=== PATIENT | female | born 1945 | race Two or more races ===

== ENCOUNTER 2017-05-20 13:48 | Outpatient (CLI) | payer OTHER ==
[~2017-05-20 13:48] MED LIST: [UNRECOGNIZED DRUG - OTHER]
== END 2017-05-20 14:54 | disposition home or self-care (01) ==
LOC: MAMO-SONO 13:48
DX: Z12.31 Encounter for screening mammogram for malignant neoplasm of breast (principal); Z87.898 Personal history of other specified conditions; C50.911 Malignant neoplasm of unspecified site of right female breast; C50.912 Malignant neoplasm of unspecified site of left female breast

== ENCOUNTER 2017-05-23 12:25 | Outpatient (CLI) | payer OTHER | END 2017-05-23 15:39 | disposition home or self-care (01) | LOC: NUCLEAR 12:25 | DX: M81.0 Age-related osteoporosis without current pathological fracture (principal) ==

== ENCOUNTER 2017-11-26 09:51 | Outpatient (CLI) | payer OTHER | END 2017-11-26 10:01 | disposition home or self-care (01) | LOC: NUCLEAR 09:51 | DX: I11.9 Hypertensive heart disease without heart failure (principal) ==

== ENCOUNTER 2018-03-06 09:24 | Outpatient (CLI) | payer OTHER | END 2018-03-06 11:15 | disposition home or self-care (01) | LOC: RAD 09:24 | DX: M20.12 Hallux valgus (acquired), left foot (principal) ==

== ENCOUNTER 2018-08-13 12:38 | Outpatient (CLI) | payer OTHER | END 2018-08-13 12:43 | disposition home or self-care (01) | LOC: MAMO-SONO 12:38 | DX: Z12.31 Encounter for screening mammogram for malignant neoplasm of breast (principal); Z87.898 Personal history of other specified conditions; C50.911 Malignant neoplasm of unspecified site of right female breast; C50.912 Malignant neoplasm of unspecified site of left female breast; N63.10 Unspecified lump in the right breast, unspecified quadrant; N63.20 Unspecified lump in the left breast, unspecified quadrant; I11.9 Hypertensive heart disease without heart failure; R06.02 Shortness of breath ==

== ENCOUNTER 2018-09-11 11:13 | Outpatient (CLI) | payer OTHER | END 2018-09-11 11:17 | disposition home or self-care (01) | LOC: SONOGRAMA 11:13 | DX: N60.11 Diffuse cystic mastopathy of right breast (principal); N60.12 Diffuse cystic mastopathy of left breast; N63.21 Unspecified lump in the left breast, upper outer quadrant ==

== ENCOUNTER 2018-09-30 08:51 | Outpatient (CLI) | payer OTHER | END 2018-09-30 08:55 | disposition home or self-care (01) | LOC: RAD 08:51 | DX: M16.11 Unilateral primary osteoarthritis, right hip (principal); M17.11 Unilateral primary osteoarthritis, right knee ==

== ENCOUNTER 2018-11-13 06:32 | Outpatient (CLI) | payer OTHER | END 2018-11-13 06:49 | disposition home or self-care (01) | LOC: LAB 06:32 | DX: D64.89 Other specified anemias (principal); E88.89 Other specified metabolic disorders; D68.8 Other specified coagulation defects; N39.0 Urinary tract infection, site not specified; Z22.322 Carrier or suspected carrier of Methicillin resistant Staphylococcus aureus; Z76.89 Persons encountering health services in other specified circumstances; I49.8 Other specified cardiac arrhythmias ==

== ENCOUNTER 2018-11-19 16:56 | Outpatient (CLI) | payer OTHER | END 2018-11-19 17:05 | disposition home or self-care (01) | LOC: RAD 16:56 | DX: M16.11 Unilateral primary osteoarthritis, right hip (principal); M87.050 Idiopathic aseptic necrosis of pelvis ==

== ENCOUNTER 2018-11-25 14:48 | Inpatient (IN) | payer OTHER ==
[~2018-11-25] VITALS: Ht 152.4 cm; Wt 59.9 kg
[2018-11-25] MEDS ORDERED: CALCI-CHEW500 MG PO (15:52)
[2018-11-25] MEDS ORDERED: ASPIRIN81 M1 PO (15:52)
[2018-11-25] MEDS ORDERED: AMOLODIPINE PO (15:53)
[2018-11-25] MEDS ORDERED: DICLOFENAC POTA50 MG PO (15:53)
[2018-11-25] MEDS ORDERED: GLUCOSA (15:54)
[2018-11-25] MEDS ORDERED: TYLENOL ARTHRI650 MG PO (15:54)
[2018-11-25] MEDS ORDERED: LIPITO PO (15:55)
[2018-11-25] MEDS ORDERED: TYLENOL 120MG120 MG PO (15:55)
[2018-11-25] MEDS ORDERED: NEURIN SL (15:56)
[2018-11-25] MEDS ORDERED: IBUPROFEN800 MG (15:56)
[2018-12-01] MEDS ORDERED: ATORVASTATIN CA10 MG PO (09:42)
[2018-12-01] MEDS ORDERED: AMLODIPINE BESYL5 MG PO (09:42)
[2018-12-01] MEDS ORDERED: VITAMIN D35000 UNIT PO (09:43)
[2018-12-01] MEDS ORDERED: ABANEU-SL TABL1 EACH SL (09:44)
== END 2018-12-03 17:45 | DRG 470 ==
LOC: O/R 12-01 07:39 → SURH 12-01 07:39
PROVIDERS: ADMIT Orthopaedic Surgery
PROC: 0SR902Z Replacement of Right Hip Joint with Metal on Polyethylene Synthetic Substitute, Open Approach (ICD-10-PCS; principal; 2018-12-01 09:45)
DX: M16.11 Unilateral primary osteoarthritis, right hip (principal); D62 Acute posthemorrhagic anemia; Z96.641 Presence of right artificial hip joint

== ENCOUNTER 2019-02-12 07:42 | Outpatient (CLI) | payer OTHER ==
[~2019-02-12 07:42] MED LIST changes: +ABANEU-SL TABL1 EACH SL; +AMLODIPINE BESYL5 MG PO; +AMOLODIPINE PO; +ASPIRIN81 M1 PO; +ATORVASTATIN CA10 MG PO; +CALCI-CHEW500 MG PO; +DICLOFENAC POTA50 MG PO; +GLUCOSA; +IBUPROFEN800 MG; +LIPITO PO; +NEURIN SL; +TYLENOL 120MG120 MG PO; +TYLENOL ARTHRI650 MG PO; +VITAMIN D35000 UNIT PO
== END 2019-02-12 08:18 | disposition home or self-care (01) ==
LOC: SONOGRAMA 07:42
DX: N60.11 Diffuse cystic mastopathy of right breast (principal); N60.12 Diffuse cystic mastopathy of left breast

== ENCOUNTER 2019-05-04 09:45 | Outpatient (CLI) | payer OTHER | END 2019-05-04 10:20 | disposition home or self-care (01) | LOC: NUCLEAR 09:45 | DX: M81.6 Localized osteoporosis [Lequesne] (principal) ==

== ENCOUNTER 2020-02-21 10:29 | Outpatient (CLI) | payer OTHER | END 2020-02-21 10:38 | disposition home or self-care (01) | LOC: MAMO-SONO 10:29 | PROVIDERS: ATTEND Surgery | DX: Z12.31 Encounter for screening mammogram for malignant neoplasm of breast (principal); N60.11 Diffuse cystic mastopathy of right breast; N60.12 Diffuse cystic mastopathy of left breast ==

== ENCOUNTER 2021-01-08 12:15 | Outpatient (CLI) | payer OTHER | END 2021-01-08 12:20 | disposition home or self-care (01) | LOC: PPH VACUNA 12:15 | PROVIDERS: ATTEND Emergency Medicine Pediatric Emergency Medicine | DX: Z23 Encounter for immunization (principal) ==

== ENCOUNTER 2021-02-28 10:21 | Outpatient (CLI) | payer OTHER | END 2021-02-28 10:36 | disposition home or self-care (01) | LOC: MAMO-SONO 10:21 | PROVIDERS: ATTEND Surgery | DX: N60.11 Diffuse cystic mastopathy of right breast (principal); N60.12 Diffuse cystic mastopathy of left breast; R92.1 Mammographic calcification found on diagnostic imaging of breast; Z12.31 Encounter for screening mammogram for malignant neoplasm of breast ==

== ENCOUNTER → 2022-01-15 06:30 | Outpatient (CLI) | payer OTHER | END | disposition home or self-care (01) | LOC: LAB 06:30 | PROVIDERS: ATTEND Internal Medicine Hematology & Oncology | DX: D50.8 Other iron deficiency anemias (principal); R79.9 Abnormal finding of blood chemistry, unspecified; I10 Essential (primary) hypertension; R74.02 Elevation of levels of lactic acid dehydrogenase [LDH]; K76.89 Other specified diseases of liver; D51.1 Vitamin B12 deficiency anemia due to selective vitamin B12 malabsorption with proteinuria; D51.0 Vitamin B12 deficiency anemia due to intrinsic factor deficiency; C50.919 Malignant neoplasm of unspecified site of unspecified female breast; R97.8 Other abnormal tumor markers; R97.1 Elevated cancer antigen 125 [CA 125]; C56.9 Malignant neoplasm of unspecified ovary; E06.3 Autoimmune thyroiditis; E03.8 Other specified hypothyroidism; E78.2 Mixed hyperlipidemia; D53.0 Protein deficiency anemia ==

== ENCOUNTER 2022-01-31 06:12 | Outpatient (CLI) | payer OTHER | END 2022-01-31 06:13 | disposition home or self-care (01) | LOC: LAB 06:12 | PROVIDERS: ATTEND Internal Medicine Geriatric Medicine | DX: D50.9 Iron deficiency anemia, unspecified (principal); E03.9 Hypothyroidism, unspecified; E78.2 Mixed hyperlipidemia; I11.9 Hypertensive heart disease without heart failure; E56.8 Deficiency of other vitamins; N39.0 Urinary tract infection, site not specified; Z12.11 Encounter for screening for malignant neoplasm of colon; E55.9 Vitamin D deficiency, unspecified; N19 Unspecified kidney failure; E11.9 Type 2 diabetes mellitus without complications; R80.9 Proteinuria, unspecified; K92.1 Melena; C18.9 Malignant neoplasm of colon, unspecified ==

== ENCOUNTER 2022-03-04 09:52 | Outpatient (CLI) | payer OTHER | END 2022-03-04 10:03 | disposition home or self-care (01) | LOC: MAMO-SONO 09:52 | PROVIDERS: ATTEND Surgery | DX: N60.11 Diffuse cystic mastopathy of right breast (principal); N60.12 Diffuse cystic mastopathy of left breast ==

== ENCOUNTER → 2022-03-06 06:20 | Outpatient (CLI) | payer OTHER | END | disposition home or self-care (01) | LOC: LAB 06:20 | PROVIDERS: ATTEND Internal Medicine Hematology & Oncology | DX: D50.8 Other iron deficiency anemias (principal); R79.9 Abnormal finding of blood chemistry, unspecified; I10 Essential (primary) hypertension; R74.02 Elevation of levels of lactic acid dehydrogenase [LDH]; K76.89 Other specified diseases of liver; D51.3 Other dietary vitamin B12 deficiency anemia; D53.0 Protein deficiency anemia; D61.811 Other drug-induced pancytopenia; E78.2 Mixed hyperlipidemia ==

== ENCOUNTER 2022-05-16 06:45 | Outpatient (CLI) | payer OTHER | END 2022-05-16 14:10 | disposition home or self-care (01) | LOC: LAB 06:45 | PROVIDERS: ATTEND Internal Medicine Geriatric Medicine | DX: D50.9 Iron deficiency anemia, unspecified (principal); E03.9 Hypothyroidism, unspecified; E78.2 Mixed hyperlipidemia; I11.9 Hypertensive heart disease without heart failure; E56.8 Deficiency of other vitamins; N39.0 Urinary tract infection, site not specified; Z12.11 Encounter for screening for malignant neoplasm of colon; R19.5 Other fecal abnormalities; E55.9 Vitamin D deficiency, unspecified; N19 Unspecified kidney failure; E11.9 Type 2 diabetes mellitus without complications ==

== ENCOUNTER → 2022-06-11 06:13 | Outpatient (CLI) | payer OTHER | END | disposition home or self-care (01) | LOC: LAB 06:13 | PROVIDERS: ATTEND Internal Medicine Hematology & Oncology | DX: D50.8 Other iron deficiency anemias (principal); R79.9 Abnormal finding of blood chemistry, unspecified; I10 Essential (primary) hypertension; R74.02 Elevation of levels of lactic acid dehydrogenase [LDH]; K76.89 Other specified diseases of liver; D51.8 Other vitamin B12 deficiency anemias; D51.3 Other dietary vitamin B12 deficiency anemia; D53.0 Protein deficiency anemia; D61.811 Other drug-induced pancytopenia; E78.2 Mixed hyperlipidemia; D70.8 Other neutropenia ==

== ENCOUNTER 2022-08-14 06:49 | Outpatient (CLI) | payer OTHER | END 2022-08-14 06:58 | disposition home or self-care (01) | LOC: LAB 06:49 | PROVIDERS: ATTEND Internal Medicine Hematology & Oncology | DX: D50.9 Iron deficiency anemia, unspecified (principal); E03.9 Hypothyroidism, unspecified; E78.2 Mixed hyperlipidemia; I11.9 Hypertensive heart disease without heart failure; E56.8 Deficiency of other vitamins; N39.0 Urinary tract infection, site not specified; Z12.11 Encounter for screening for malignant neoplasm of colon; E55.9 Vitamin D deficiency, unspecified; N19 Unspecified kidney failure; E11.9 Type 2 diabetes mellitus without complications; K92.1 Melena ==

== ENCOUNTER 2022-09-30 06:09 | Outpatient (CLI) | payer OTHER | END 2022-09-30 06:11 | disposition home or self-care (01) | LOC: LAB 06:09 | PROVIDERS: ATTEND Internal Medicine Hematology & Oncology | DX: D50.8 Other iron deficiency anemias (principal); R79.9 Abnormal finding of blood chemistry, unspecified; I10 Essential (primary) hypertension; R74.02 Elevation of levels of lactic acid dehydrogenase [LDH]; K76.89 Other specified diseases of liver ==

== ENCOUNTER 2022-12-03 06:52 | Outpatient (CLI) | payer OTHER | END 2022-12-03 06:56 | disposition home or self-care (01) | LOC: LAB 06:52 | PROVIDERS: ATTEND Internal Medicine Geriatric Medicine | DX: D50.9 Iron deficiency anemia, unspecified (principal); E03.9 Hypothyroidism, unspecified; E78.2 Mixed hyperlipidemia; I11.9 Hypertensive heart disease without heart failure; E56.8 Deficiency of other vitamins; N39.0 Urinary tract infection, site not specified; Z12.11 Encounter for screening for malignant neoplasm of colon; R19.5 Other fecal abnormalities; E55.9 Vitamin D deficiency, unspecified; N19 Unspecified kidney failure; E11.9 Type 2 diabetes mellitus without complications ==

== ENCOUNTER → 2023-02-13 06:04 | Outpatient (CLI) | payer OTHER ==
[2023-02-13 07:09] LABS: URINE APPEARANCE Clear; URINE BILIRRUBIN Negative (NEGATIVE); URINE BLOOD Negative; URINE COLOR Yellow; URINE GLUCOSE Negative (NEGATIVE); URINE LEUKOCYTE Negative; URINE NITRATE Negative; URINE PROTEIN Negative (NEGATIVE); URINE UROBILINOGEN 0.2 E.U./dl
[2023-02-13 07:11] LABS: URINE BACTERIA 13.8 uL (0.0-1933); URINE EPITHELIAL CELLS 2.3 uL (0.0-38.8); URINE RBC 6.6 uL (0.0-20.8)
[2023-02-13 07:15] LABS: URINE WBC 0.7 uL (0.0-23.2)
[2023-02-13 07:20] LABS: HEMATOCRIT 37.5 % (36.0-45.00); HEMOGLOBIN 12.6 g/dL (12.0-15.00); MEAN CELL VOLUME 92.1 fL (80.00-100.00); MEAN CORPUSCULAR HEMOGLOBIN 30.9 pg (27.00-32.0); MEAN CORPUSCULAR HGB CONC 33.6 g/dl (32.0-36.0); PLATELET COUNT 252 K/uL (150-450); RED BLOOD COUNT 4.07 M/uL (4.00-6.00); RED CELL DISTRIBUTION WIDTH 13.8 % (11.5-14.5)
[2023-02-13 08:09] LABS: ALBUMIN 3.5 gm/dL (3.4-5.0); BILIRUBIN TOTAL 0.45 mg/dL (0.3-1.2); CALCIUM 9.1 mg/dL (8.5-10.1); CHOL HDL RATIO 1.8 (0-5.0); CREATININE SERUM 0.66 mg/dL (0.55-1.02); GFR 87.31; GLOBULINA 3.2 G/DL (2.4-3.5); POTASSIUM 4.6 mEq/L (3.5-5.1); TOTAL PROTEIN 6.7 gm/dL (6.4-8.2); TSH 1.16 uIU/mL (0.358-3.74)
== END | disposition home or self-care (01) ==
LOC: LAB 06:04
PROVIDERS: ATTEND Internal Medicine Geriatric Medicine
DX: E03.9 Hypothyroidism, unspecified (principal); E78.2 Mixed hyperlipidemia; I11.9 Hypertensive heart disease without heart failure; E56.8 Deficiency of other vitamins; N39.0 Urinary tract infection, site not specified; Z12.11 Encounter for screening for malignant neoplasm of colon; R19.5 Other fecal abnormalities; E55.9 Vitamin D deficiency, unspecified; N19 Unspecified kidney failure; E11.9 Type 2 diabetes mellitus without complications

== ENCOUNTER 2023-03-14 09:38 | Outpatient (CLI) | payer OTHER | END 2023-03-14 09:50 | disposition home or self-care (01) | LOC: MAMO-SONO 09:38 | PROVIDERS: ATTEND Surgery | DX: N60.11 Diffuse cystic mastopathy of right breast (principal); N60.12 Diffuse cystic mastopathy of left breast; Z12.31 Encounter for screening mammogram for malignant neoplasm of breast ==

== ENCOUNTER 2023-04-15 06:08 | Outpatient (CLI) | payer OTHER ==
[2023-04-15 08:23] LABS: HEMATOCRIT 37.2 % (36.0-45.00); HEMOGLOBIN 12.8 g/dL (12.0-15.00); MEAN CELL VOLUME 93.7 fL (80.00-100.00); MEAN CORPUSCULAR HEMOGLOBIN 32.3 pg (27.00-32.0); MEAN CORPUSCULAR HGB CONC 34.4 g/dl (32.0-36.0); PLATELET COUNT 263 K/uL (150-450); RED BLOOD COUNT 3.97 M/uL (4.00-6.00); RED CELL DISTRIBUTION WIDTH 13.9 % (11.5-14.5)
[2023-04-15 08:30] LABS: % SATURACION 20.3 % (15-50); ALBUMIN 3.6 gm/dL (3.4-5.0); BILIRUBIN TOTAL 0.41 mg/dL (0.3-1.2); CALCIUM 9.3 mg/dL (8.5-10.1); CREATININE SERUM 0.63 mg/dL (0.55-1.02); FERRITIN 15.9 NG/ML (8-252); GFR 92.12; GLOBULINA 3.3 G/DL (2.4-3.5); POTASSIUM 4.87 mEq/L (3.5-5.1); TOTAL PROTEIN 6.9 gm/dL (6.4-8.2)
[2023-04-15 11:40] LABS: FOLIC ACID > 20.00 ng/ml (4.78-20)
[2023-04-15 13:26] LABS: MANUAL PLATELET COUNT 430
[2023-04-15 13:29] LABS: PLATELET ESTIMATE NORMAL (NORMAL)
== END 2023-04-15 06:30 | disposition home or self-care (01) ==
LOC: LAB 06:08
PROVIDERS: ATTEND Internal Medicine Hematology & Oncology
DX: D72.818 Other decreased white blood cell count (principal); D51.3 Other dietary vitamin B12 deficiency anemia; D53.0 Protein deficiency anemia; D61.811 Other drug-induced pancytopenia; I10 Essential (primary) hypertension; E78.2 Mixed hyperlipidemia; D70.8 Other neutropenia

== ENCOUNTER → 2023-05-19 07:00 | Outpatient (CLI) | payer OTHER ==
[2023-05-19 07:39] LABS: HEMATOCRIT 37.1 % (36.0-45.00); HEMOGLOBIN 12.7 g/dL (12.0-15.00); MEAN CORPUSCULAR HEMOGLOBIN 31.5 pg (27.00-32.0); MEAN CORPUSCULAR HGB CONC 34.2 g/dl (32.0-36.0); PLATELET COUNT 250 K/uL (150-450); RED BLOOD COUNT 4.03 M/uL (4.00-6.00); RED CELL DISTRIBUTION WIDTH 13.5 % (11.5-14.5)
[2023-05-19 08:03] LABS: PH,URINE 7.5 (5.0-8.0); URINE APPEARANCE Clear; URINE BILIRRUBIN Negative (NEGATIVE); URINE BLOOD Negative; URINE COLOR Yellow; URINE GLUCOSE Negative (NEGATIVE); URINE LEUKOCYTE Small; URINE NITRATE Negative; URINE PROTEIN Negative (NEGATIVE); URINE UROBILINOGEN 0.2 E.U./dl
[2023-05-19 08:04] LABS: URINE BACTERIA 90.7 uL (0.0-1933); URINE EPITHELIAL CELLS 7.8 uL (0.0-38.8); URINE RBC 9.6 uL (0.0-20.8); URINE WBC 13.4 uL (0.0-23.2)
[2023-05-19 08:18] LABS: ALBUMIN 3.5 gm/dL (3.4-5.0); BILIRUBIN TOTAL 0.52 mg/dL (0.3-1.2); CALCIUM 9.4 mg/dL (8.5-10.1); CHOL HDL RATIO 2.2 (0-5.0); CREATININE SERUM 0.58 mg/dL (0.55-1.02); GFR 101.07; GLOBULINA 3.5 G/DL (2.4-3.5); POTASSIUM 4.48 mEq/L (3.5-5.1); TSH 1.14 uIU/mL (0.358-3.74)
== END | disposition home or self-care (01) ==
LOC: LAB 07:00
PROVIDERS: ATTEND Internal Medicine Geriatric Medicine
DX: D50.9 Iron deficiency anemia, unspecified (principal); E03.9 Hypothyroidism, unspecified; E78.2 Mixed hyperlipidemia; I11.9 Hypertensive heart disease without heart failure; E56.8 Deficiency of other vitamins; N39.0 Urinary tract infection, site not specified; Z12.11 Encounter for screening for malignant neoplasm of colon; R19.5 Other fecal abnormalities; E55.9 Vitamin D deficiency, unspecified; N19 Unspecified kidney failure; E11.9 Type 2 diabetes mellitus without complications

== ENCOUNTER 2023-05-22 13:02 | Outpatient (CLI) | payer OTHER | END 2023-05-22 13:06 | disposition home or self-care (01) | LOC: NUCLEAR 13:02 | PROVIDERS: ATTEND Internal Medicine Geriatric Medicine | DX: M81.0 Age-related osteoporosis without current pathological fracture (principal); M15.0 Primary generalized (osteo)arthritis ==

== ENCOUNTER 2023-10-09 06:08 | Outpatient (CLI) | payer OTHER ==
[2023-10-09 07:20] LABS: HEMATOCRIT 35.8 % (36.0-45.00); HEMOGLOBIN 12.3 g/dL (12.0-15.00); MEAN CELL VOLUME 90.8 fL (80.00-100.00); MEAN CORPUSCULAR HEMOGLOBIN 31.1 pg (27.00-32.0); MEAN CORPUSCULAR HGB CONC 34.2 g/dl (32.0-36.0); PLATELET COUNT 269 K/uL (150-450); RED BLOOD COUNT 3.95 M/uL (4.00-6.00); RED CELL DISTRIBUTION WIDTH 13.6 % (11.5-14.5)
[2023-10-09 08:00] LABS: ALBUMIN 3.4 gm/dL (3.4-5.0); BILIRUBIN TOTAL 0.54 mg/dL (0.3-1.2); CREATININE SERUM 0.63 mg/dL (0.55-1.02); FERRITIN 17.5 NG/ML (8-252); GFR 91.88; GLOBULINA 3.5 G/DL (2.4-3.5); POTASSIUM 4.02 mEq/L (3.5-5.1); TOTAL PROTEIN 6.9 gm/dL (6.4-8.2)
[2023-10-09 12:31] LABS: FOLIC ACID > 20.00 ng/ml (4.78-20)
[2023-10-10 09:10] LABS: CA 125 4.3 U/mL (0.0-38.1); CA 15-3 11.5 U/mL (0.0-25.0); CA 19-9 7 U/mL (0-35)
[2023-10-10 10:35] LABS: PLATELET ESTIMATE NORMAL (NORMAL)
[2023-10-10 13:06] LABS: hgb a 97.8 % (96.4-98.8); hgb a2 2.2 % (1.8-3.2); hgb f 0 % (0.0-2.0); hgb s 0 % (0.0)
[2023-10-14 07:50] LABS: rbc 4.05
[2023-10-15 09:57] LABS: g6pd quant 266 (127-427)
== END 2023-10-09 06:13 | disposition home or self-care (01) ==
LOC: LAB 06:08
PROVIDERS: ATTEND Internal Medicine Hematology & Oncology
DX: D72.818 Other decreased white blood cell count (principal); D51.3 Other dietary vitamin B12 deficiency anemia; D53.0 Protein deficiency anemia; D61.811 Other drug-induced pancytopenia; I10 Essential (primary) hypertension; E78.2 Mixed hyperlipidemia

== ENCOUNTER 2023-11-07 09:28 | Emergency (ER) | payer OTHER ==
[~2023-11-07] VITALS: Ht 152.4 cm; Wt 57.6 kg
[2023-11-07] MEDS ORDERED: HYDROGEN PEROXIDE 473 ML BOTTLE TOP ONE (09:34)
[2023-11-07] MEDS ORDERED: LIDOCAINE HCL 1% 10ML VIAL ONE (09:34)
[2023-11-07] MEDS ORDERED: POVIDONE-IODINE 118 ML BOTT TOP ONE (09:34)
[2023-11-07] MEDS ORDERED: OMEGA 3 1,0001 EACH (09:47)
[2023-11-07] MEDS ORDERED: LATANOPROST2.5 ML OP (09:47)
== END 2023-11-07 10:46 | disposition home or self-care (01) ==
LOC: ER 09:29
DX: S69.81XA Other specified injuries of right wrist, hand and finger(s), initial encounter (principal); T14.8XXA Other injury of unspecified body region, initial encounter; X58.XXXA Exposure to other specified factors, initial encounter; Y93.89 Activity, other specified; Y92.89 Other specified places as the place of occurrence of the external cause; Y99.8 Other external cause status

== ENCOUNTER → 2023-12-18 06:06 | Outpatient (CLI) | payer OTHER ==
[~2023-12-18 06:06] MED LIST changes: +LATANOPROST2.5 ML OP; +OMEGA 3 1,0001 EACH
[2023-12-18 07:03] LABS: HEMOGLOBIN 12.6 g/dL (12.0-15.00); MEAN CELL VOLUME 92.6 fL (80.00-100.00); MEAN CORPUSCULAR HEMOGLOBIN 31.5 pg (27.00-32.0); PLATELET COUNT 283 K/uL (150-450); RED BLOOD COUNT 3.99 M/uL (4.00-6.00); RED CELL DISTRIBUTION WIDTH 13.8 % (11.5-14.5)
[2023-12-18 07:14] LABS: PH,URINE 6.5 (5.0-8.0); URINE APPEARANCE Clear; URINE BILIRRUBIN Negative (NEGATIVE); URINE BLOOD Negative; URINE COLOR Yellow; URINE GLUCOSE Negative (NEGATIVE); URINE KETONE Negative (NEGATIVE); URINE LEUKOCYTE Small; URINE NITRATE Negative; URINE PROTEIN Negative (NEGATIVE); URINE UROBILINOGEN 0.2 E.U./dl
[2023-12-18 07:17] LABS: URINE BACTERIA 47.8 uL (0.0-1933); URINE EPITHELIAL CELLS 5.4 uL (0.0-38.8); URINE RBC 12.2 uL (0.0-20.8); URINE WBC 9.7 uL (0.0-23.2)
[2023-12-18 08:26] LABS: ALBUMIN 3.6 gm/dL (3.4-5.0); BILIRUBIN TOTAL 0.54 mg/dL (0.3-1.2); CALCIUM 9.2 mg/dL (8.5-10.1); CHOL HDL RATIO 1.9 (0-5.0); CREATININE SERUM 0.62 mg/dL (0.55-1.02); GFR 93.59; GLOBULINA 3.6 G/DL (2.4-3.5); POTASSIUM 3.92 mEq/L (3.5-5.1); TOTAL PROTEIN 7.2 gm/dL (6.4-8.2); TSH 1.52 uIU/mL (0.358-3.74)
== END | disposition home or self-care (01) ==
LOC: LAB 06:06
PROVIDERS: ATTEND Internal Medicine Geriatric Medicine
DX: D50.9 Iron deficiency anemia, unspecified (principal); E03.9 Hypothyroidism, unspecified; E78.2 Mixed hyperlipidemia; I11.9 Hypertensive heart disease without heart failure; E56.8 Deficiency of other vitamins; N39.0 Urinary tract infection, site not specified; Z12.11 Encounter for screening for malignant neoplasm of colon; R19.5 Other fecal abnormalities; E55.9 Vitamin D deficiency, unspecified; N19 Unspecified kidney failure; E11.9 Type 2 diabetes mellitus without complications

== ENCOUNTER 2024-02-11 08:35 | Emergency (ER) | payer OTHER ==
[~2024-02-11] VITALS: Ht 152.4 cm; Wt 57.6 kg
[2024-02-11] MEDS ORDERED: VITREXYL CAP1000 MCG PO (08:54)
[2024-02-11] MEDS ORDERED: KETOROLAC TROMETHAMINE 30 MG VIAL IM ONE (09:30)
[2024-02-11] MEDS ORDERED: ORPHENADRINE CITRATE 30 MG/ML AMPUL IM ONE (09:30)
[2024-02-11] MEDS ORDERED: NORFLEX100MG PO (10:02)
== END 2024-02-11 11:41 | disposition home or self-care (01) ==
LOC: ER 08:35
DX: M79.605 Pain in left leg (principal)
CPT/HCPCS: 72170; 73560; 73610; 96372; 99283; J1885; J2360

== ENCOUNTER 2024-03-15 06:12 | Outpatient (CLI) | payer OTHER ==
[~2024-03-15 06:12] MED LIST changes: +NORFLEX100MG PO; +VITREXYL CAP1000 MCG PO
[2024-03-15 06:56] LABS: HEMATOCRIT 36.2 % (36.0-45.00); HEMOGLOBIN 12.3 g/dL (12.0-15.00); MEAN CELL VOLUME 91.4 fL (80.00-100.00); MEAN CORPUSCULAR HEMOGLOBIN 31.2 pg (27.00-32.0); MEAN CORPUSCULAR HGB CONC 34.1 g/dl (32.0-36.0); PLATELET COUNT 285 K/uL (150-450); RED BLOOD COUNT 3.96 M/uL (4.00-6.00); RED CELL DISTRIBUTION WIDTH 14.5 % (11.5-14.5)
[2024-03-15 07:07] LABS: PH,URINE 7.5 (5.0-8.0); URINE APPEARANCE Clear; URINE BILIRRUBIN Negative (NEGATIVE); URINE BLOOD Negative; URINE COLOR Yellow; URINE GLUCOSE Negative (NEGATIVE); URINE KETONE Negative (NEGATIVE); URINE LEUKOCYTE Negative; URINE NITRATE Negative; URINE PROTEIN Negative (NEGATIVE); URINE UROBILINOGEN 0.2 E.U./dl
[2024-03-15 07:09] LABS: URINE BACTERIA 41.5 uL (0.0-1933); URINE RBC 20.1 uL (0.0-20.8); URINE WBC 5.7 uL (0.0-23.2)
[2024-03-15 07:18] LABS: URINE CAST 0.15 uL (0.0-1.40)
[2024-03-15 07:44] LABS: ALBUMIN 3.6 gm/dL (3.4-5.0); BILIRUBIN TOTAL 0.52 mg/dL (0.3-1.2); CALCIUM 9.3 mg/dL (8.5-10.1); CREATININE SERUM 0.54 mg/dL (0.55-1.02); GFR 109.76; GLOBULINA 3.4 G/DL (2.4-3.5); POTASSIUM 4.17 mEq/L (3.5-5.1); TSH 1.59 uIU/mL (0.358-3.74)
== END 2024-03-15 06:55 | disposition home or self-care (01) ==
LOC: LAB 06:12
PROVIDERS: ATTEND Internal Medicine Geriatric Medicine
DX: D50.9 Iron deficiency anemia, unspecified (principal); E03.9 Hypothyroidism, unspecified; E78.2 Mixed hyperlipidemia; I11.9 Hypertensive heart disease without heart failure; E56.8 Deficiency of other vitamins; N39.0 Urinary tract infection, site not specified; Z12.11 Encounter for screening for malignant neoplasm of colon; R19.5 Other fecal abnormalities; E55.9 Vitamin D deficiency, unspecified; N19 Unspecified kidney failure; E11.9 Type 2 diabetes mellitus without complications

== ENCOUNTER 2024-03-15 07:12 | Outpatient (CLI) | payer OTHER | END 2024-03-15 07:19 | disposition home or self-care (01) | LOC: MAMO-SONO 07:12 | PROVIDERS: ATTEND Internal Medicine Geriatric Medicine | DX: Z12.31 Encounter for screening mammogram for malignant neoplasm of breast (principal); C50.919 Malignant neoplasm of unspecified site of unspecified female breast; N63.0 Unspecified lump in unspecified breast ==

== ENCOUNTER → 2024-04-22 06:04 | Outpatient (CLI) | payer OTHER ==
[2024-04-22 07:43] LABS: HEMATOCRIT 37.9 % (36.0-45.00); HEMOGLOBIN 13.1 g/dL (12.0-15.00); MEAN CELL VOLUME 91.3 fL (80.00-100.00); MEAN CORPUSCULAR HEMOGLOBIN 31.6 pg (27.00-32.0); MEAN CORPUSCULAR HGB CONC 34.6 g/dl (32.0-36.0); PLATELET COUNT 334 K/uL (150-450); RED BLOOD COUNT 4.15 M/uL (4.00-6.00); RED CELL DISTRIBUTION WIDTH 15.2 % (11.5-14.5)
[2024-04-22 08:01] LABS: ALBUMIN 3.7 gm/dL (3.4-5.0); BILIRUBIN TOTAL 0.59 mg/dL (0.3-1.2); CALCIUM 9.6 mg/dL (8.5-10.1); CREATININE SERUM 0.64 mg/dL (0.55-1.02); GFR 90.22; GLOBULINA 3.5 G/DL (2.4-3.5); POTASSIUM 4.53 mEq/L (3.5-5.1); TOTAL PROTEIN 7.2 gm/dL (6.4-8.2)
[2024-04-22 14:34] LABS: FOLIC ACID > 20.00 ng/ml (4.78-20)
[2024-04-23 11:57] LABS: MANUAL PLATELET COUNT 338; PLATELET ESTIMATE NORMAL (NORMAL)
== END | disposition home or self-care (01) ==
LOC: LAB 06:04
PROVIDERS: ATTEND Internal Medicine Hematology & Oncology
DX: D50.8 Other iron deficiency anemias (principal); R79.9 Abnormal finding of blood chemistry, unspecified; I10 Essential (primary) hypertension; R74.02 Elevation of levels of lactic acid dehydrogenase [LDH]; K76.89 Other specified diseases of liver; D51.8 Other vitamin B12 deficiency anemias; D72.818 Other decreased white blood cell count; D51.3 Other dietary vitamin B12 deficiency anemia; D53.0 Protein deficiency anemia; D61.811 Other drug-induced pancytopenia; E78.2 Mixed hyperlipidemia

== ENCOUNTER 2024-06-30 06:03 | Outpatient (CLI) | payer OTHER ==
[2024-06-30 07:05] LABS: URINE APPEARANCE Clear; URINE BILIRRUBIN Negative (NEGATIVE); URINE BLOOD Negative; URINE COLOR Yellow; URINE GLUCOSE Negative (NEGATIVE); URINE KETONE Negative (NEGATIVE); URINE LEUKOCYTE Moderate; URINE NITRATE Negative; URINE PROTEIN Negative (NEGATIVE); URINE UROBILINOGEN 0.2 E.U./dl
[2024-06-30 07:06] LABS: URINE BACTERIA 121.1 uL (0.0-1933); URINE EPITHELIAL CELLS 9.1 uL (0.0-38.8); URINE RBC 12.6 uL (0.0-20.8); URINE WBC 35.5 uL (0.0-23.2)
[2024-06-30 07:19] LABS: URINE CAST 0.29 uL (0.0-1.40)
[2024-06-30 07:29] LABS: HEMATOCRIT 37.4 % (36.0-45.00); HEMOGLOBIN 12.6 g/dL (12.0-15.00); MEAN CELL VOLUME 93.1 fL (80.00-100.00); MEAN CORPUSCULAR HEMOGLOBIN 31.4 pg (27.00-32.0); MEAN CORPUSCULAR HGB CONC 33.7 g/dl (32.0-36.0); PLATELET COUNT 265 K/uL (150-450); RED BLOOD COUNT 4.01 M/uL (4.00-6.00); RED CELL DISTRIBUTION WIDTH 13.3 % (11.5-14.5)
[2024-06-30 08:11] LABS: ALBUMIN 3.8 gm/dL (3.4-5.0); BILIRUBIN TOTAL 0.5 mg/dL (0.3-1.2); CALCIUM 9.3 mg/dL (8.5-10.1); CHOL HDL RATIO 2.3 (0-5.0); CREATININE SERUM 0.64 mg/dL (0.55-1.02); GFR 89.98; GLOBULINA 3.2 G/DL (2.4-3.5); POTASSIUM 4.83 mEq/L (3.5-5.1)
[2024-06-30 11:06] LABS: ob NEGATIVE (NEGATIVE)
[2024-06-30 20:18] LABS: TSH 1.63 uIU/mL (0.358-3.74)
== END 2024-06-30 06:07 | disposition home or self-care (01) ==
LOC: LAB 06:03
PROVIDERS: ATTEND Internal Medicine Geriatric Medicine
DX: D50.9 Iron deficiency anemia, unspecified (principal); E03.9 Hypothyroidism, unspecified; E78.2 Mixed hyperlipidemia; I11.9 Hypertensive heart disease without heart failure; E56.8 Deficiency of other vitamins; N39.0 Urinary tract infection, site not specified; Z12.11 Encounter for screening for malignant neoplasm of colon; R19.5 Other fecal abnormalities; E55.9 Vitamin D deficiency, unspecified; N19 Unspecified kidney failure; E11.9 Type 2 diabetes mellitus without complications

== ENCOUNTER → 2024-09-20 06:06 | Outpatient (CLI) | payer OTHER ==
[2024-09-20 06:44] LABS: BASO % 1.1 % (0.1-1.2); EOS # 0.14 (0.04-0.54); EOS % 2.6 % (0.7-7.0); HEMATOCRIT 37.6 % (34.1-44.9); HEMOGLOBIN 12.2 g/dL (11.2-15.7); LYMPH # 2.65 (1.18-3.74); LYMPH % 49.8 % (19.3-53.1); MEAN CORPUSCULAR HEMOGLOBIN 29.9 pg (25.6-32.2); MONO # 0.49 (0.24-0.82); MONO % 9.2 % (4.7-12.5); NEUT # 1.98 (1.56-6.13); NEUT % 37.3 % (34.0-71.1); PLATELET COUNT 276 K/uL (163-369); RED BLOOD COUNT 4.08 M/uL (3.93-5.22); RED CELL DISTRIBUTION WIDTH 13.4 % (11.6-14.4)
[2024-09-20 07:30] LABS: ALBUMIN 3.8 gm/dL (3.4-5.0); BILIRUBIN TOTAL 0.38 mg/dL (0.3-1.2); CALCIUM 9.5 mg/dL (8.5-10.1); CREATININE SERUM 0.61 mg/dL (0.55-1.02); GFR 95.1; GLOBULINA 3.3 G/DL (2.4-3.5); POTASSIUM 4.6 mEq/L (3.5-5.1); TOTAL PROTEIN 7.1 gm/dL (6.4-8.2); TSH 1.48 uIU/mL (0.358-3.74)
[2024-09-20 07:34] LABS: URINE APPEARANCE Clear; URINE BILIRRUBIN Negative (NEGATIVE); URINE BLOOD Negative; URINE COLOR Yellow; URINE GLUCOSE Negative (NEGATIVE); URINE KETONE Negative (NEGATIVE); URINE LEUKOCYTE Negative; URINE NITRATE Negative; URINE PROTEIN Negative (NEGATIVE); URINE UROBILINOGEN 0.2 E.U./dl
[2024-09-20 07:40] LABS: URINE BACTERIA 70.9 uL (0.0-1933); URINE EPITHELIAL CELLS 2.5 uL (0.0-38.8); URINE RBC 8.5 uL (0.0-20.8); URINE WBC 12.4 uL (0.0-23.2)
== END | disposition home or self-care (01) ==
LOC: LAB 06:06
PROVIDERS: ATTEND Internal Medicine Geriatric Medicine
DX: D50.9 Iron deficiency anemia, unspecified (principal); E03.9 Hypothyroidism, unspecified; E78.2 Mixed hyperlipidemia; I11.9 Hypertensive heart disease without heart failure; E56.8 Deficiency of other vitamins; N39.0 Urinary tract infection, site not specified; Z12.11 Encounter for screening for malignant neoplasm of colon; R19.5 Other fecal abnormalities; E55.9 Vitamin D deficiency, unspecified; N19 Unspecified kidney failure; E11.9 Type 2 diabetes mellitus without complications; R80.9 Proteinuria, unspecified; C18.9 Malignant neoplasm of colon, unspecified; K92.1 Melena

== ENCOUNTER 2024-10-12 06:07 | Outpatient (CLI) | payer OTHER ==
[2024-10-12 07:41] LABS: BASO % 1.2 % (0.1-1.2); EOS # 0.13 (0.04-0.54); EOS % 2.5 % (0.7-7.0); LYMPH # 2.44 (1.18-3.74); LYMPH % 46.9 % (19.3-53.1); MEAN PLATELET VOLUME 10.80 fl (9.4-12.4); MONO # 0.44 (0.24-0.82); MONO % 8.5 % (4.7-12.5); NEUT # 2.12 (1.56-6.13); NEUT % 40.7 % (34.0-71.1); RED CELL DISTRIBUTION WIDTH 13.5 % (11.6-14.4)
[2024-10-12 08:35] LABS: ALT/SGPT 26.0 U/L (12-78); AST/SGOT 20.0 U/L (15-37); BILIRUBIN TOTAL 0.71 mg/dL (0.3-1.2); BUN CREA RATIO 21.0 (7.0-25.0); CREATININE SERUM 0.66 mg/dL (0.55-1.02); FE 117.0 ug/dl (50-170); GFR 86.84; GLOBULINA 3.1 G/DL (2.4-3.5); GLUCOSE FASTING 75.0 mg/dL (65-100); LDH 209.0 U/L (84-246); OSMOLALITY SERUM 282.0 MOSM/KG (275-295)
[2024-10-12 10:08] LABS: MANUAL PLATELET COUNT 309
[2024-10-12 10:29] LABS: FOLIC ACID > 20.00 ng/ml (4.78-20); VITAMIN D3 25 HYDROXY 43.74 ng/ml (30-120)
[2024-10-13 09:08] LABS: CA 125 5.0 U/mL (0.0-38.1); CA 15-3 10.8 U/mL (0.0-25.0); CA 19-9 7.0 U/mL (0-35)
== END 2024-10-12 06:12 | disposition home or self-care (01) ==
LOC: LAB 06:07
PROVIDERS: ATTEND Internal Medicine Hematology & Oncology
DX: D51.3 Other dietary vitamin B12 deficiency anemia (principal); D53.0 Protein deficiency anemia; D61.811 Other drug-induced pancytopenia; I10 Essential (primary) hypertension; E78.2 Mixed hyperlipidemia; D70.8 Other neutropenia; D50.8 Other iron deficiency anemias; R79.9 Abnormal finding of blood chemistry, unspecified; K76.89 Other specified diseases of liver; D51.8 Other vitamin B12 deficiency anemias; E55.9 Vitamin D deficiency, unspecified; C50.919 Malignant neoplasm of unspecified site of unspecified female breast; R97.8 Other abnormal tumor markers; R97.0 Elevated carcinoembryonic antigen [CEA]

== ENCOUNTER 2024-12-29 06:14 | Outpatient (CLI) | payer OTHER ==
[2024-12-29 06:51] LABS: URINE APPEARANCE Clear; URINE BILIRRUBIN Negative (NEGATIVE); URINE BLOOD Negative; URINE COLOR Yellow; URINE GLUCOSE Negative (NEGATIVE); URINE KETONE Negative (NEGATIVE); URINE LEUKOCYTE Moderate; URINE NITRATE Negative; URINE PROTEIN Negative (NEGATIVE); URINE UROBILINOGEN 0.2 E.U./dl
[2024-12-29 06:52] LABS: URINE BACTERIA 211.1 uL (0.0-1933); URINE CAST 2.63 uL (0.0-1.40); URINE EPITHELIAL CELLS 35.5 uL (0.0-38.8); URINE RBC 10.7 uL (0.0-20.8); URINE WBC 58.2 uL (0.0-23.2)
[2024-12-29 06:56] LABS: BASO % 1.0 % (0.1-1.2); EOS # 0.11 (0.04-0.54); EOS % 2.1 % (0.7-7.0); LYMPH # 2.29 (1.18-3.74); LYMPH % 43.7 % (19.3-53.1); MEAN PLATELET VOLUME 10.50 fl (9.4-12.4); MONO # 0.51 (0.24-0.82); MONO % 9.7 % (4.7-12.5); NEUT # 2.27 (1.56-6.13); NEUT % 43.3 % (34.0-71.1); RED CELL DISTRIBUTION WIDTH 13.4 % (11.6-14.4)
[2024-12-29 08:09] LABS: ALT/SGPT 18.0 U/L (12-78); AST/SGOT 18.0 U/L (15-37); BILIRUBIN TOTAL 0.62 mg/dL (0.3-1.2); BUN CREA RATIO 22.0 (7.0-25.0); CHOL HDL RATIO 2.2 (0-5.0); CREATININE SERUM 0.73 mg/dL (0.55-1.02); GFR 77.3; GLOBULINA 3.3 G/DL (2.4-3.5); GLUCOSE FASTING 81.0 mg/dL (65-100); HDL 88.0 mg/dl (40-60); LDL 95.0 mg/dl (0-130); OSMOLALITY SERUM 287.0 MOSM/KG (275-295); TSH 1.67 uIU/mL (0.358-3.74); VLDL 14.0 (0-39)
== END 2024-12-29 06:18 | disposition home or self-care (01) ==
LOC: LAB 06:14
PROVIDERS: ATTEND Internal Medicine Geriatric Medicine
DX: D50.9 Iron deficiency anemia, unspecified (principal); E03.9 Hypothyroidism, unspecified; E78.2 Mixed hyperlipidemia; I11.9 Hypertensive heart disease without heart failure; E56.8 Deficiency of other vitamins; N39.0 Urinary tract infection, site not specified; Z12.11 Encounter for screening for malignant neoplasm of colon; R19.5 Other fecal abnormalities; E55.9 Vitamin D deficiency, unspecified; N19 Unspecified kidney failure; E11.9 Type 2 diabetes mellitus without complications; R80.9 Proteinuria, unspecified; C18.9 Malignant neoplasm of colon, unspecified